=== PATIENT | female | born 1980 | race Caucasian/White ===

== ENCOUNTER 2018-05-08 14:05 | Emergency (ER) | payer OTHER ==
[~2018-05-08] VITALS: Ht 167.6 cm; Wt 54.4 kg
[~2018-05-08 14:05] MED LIST: GILENYA0.5 MG
== END 2018-05-08 19:42 | disposition home or self-care (01) ==
LOC: ER 14:05
DX: R10.32 Left lower quadrant pain (principal)

== ENCOUNTER 2024-06-13 15:35 | Emergency (ER) | payer OTHER ==
[~2024-06-13] VITALS: Ht 165.1 cm; Wt 56.2 kg
[2024-06-13 15:41] VITALS: BP 125/85; O2SAT 100
== END 2024-06-13 19:58 | disposition home or self-care (01) ==
LOC: ER 15:37
DX: R00.0 Tachycardia, unspecified (principal); G35 Multiple sclerosis